=== PATIENT | male | born 1995 | race Caucasian/White ===

== ENCOUNTER 2025-04-05 11:24 | Emergency (ER) | payer OTHER, SELFPAY ==
--- NOTE | 2025-04-05 11:30 | DI.RAD_ITS ---
Exam(s) XR ANKLE RT COMPLETE XR FOOT RT COMPLETE EXAM: XR FOOT RT COMPLETE and XR ankle RT complete CLINICAL HISTORY: pain s/p fall. TECHNIQUE: 2D digital imaging was performed of the right ankle and foot. Six images were obtained. AP, oblique and lateral views were obtained. COMPARISON: There are no priors for comparison. FINDINGS: BONES: On the oblique view, there is a horizontal lucency projected over the lateral cuneiform. This may be artifact from overlying structures but a fracture may be considered. Please correlate with the patient's site of pain. No other findings to suggest a fracture are seen. No bony destructive lesion is seen. JOINTS: No dislocation present. The ankle joint is well maintained. SOFT TISSUE: There is soft tissue swelling lateral to the ankle. No radiopaque foreign bodies are seen. IMPRESSION: Questionable horizontal lucency overlying the lateral cuneiform on the oblique view of the foot. Fracture versus artifact. A CT scan of the midfoot may be obtained if clinically appropriate. DATA REPOSITORY: RADIATION DOSE DELIVERED:
[2025-04-05 11:31] VITALS: BP 132/80; PULSE 64; RESP 16; TEMP 36.3; O2SAT 96
--- NOTE | 2025-04-05 11:50 | ED.GENADUL_ITS ---
Discharge Plan Disposition Patient Disposition: Home Condition: Stable Discharge Details Clinical Impression: Right ankle injury, Right ankle sprain, Injury of foot, right Primary Care Provider: [facility] Provider: Mac Britton Home Meds and New Rx's Prescriptions: No Action No Known Home Meds Discharge Instructions Instructions: Ankle Sprain ED Additional Instructions: You can take 1000 mg of acetaminophen and 600 mg of ibuprofen every 6 hours as needed. If not improving within a week follow-up with express care. If you feel significant more ill or have severe worsening pain return to emergency department for reevaluation. HPI General Mode of arrival: ambulatory . Date/Time Provider Initiated Documentation: 04/05/25 11:34 . Limitations to Documentation: no limitations . Information obtained by: patient . History of Present Illness 29 year old M presents to the emergency department with the chief complaint of right ankle pain s/p twisting it, described as moderate, Quality is described as aching, and is localized to the right and lower extremity. Patient reports no radiation. Patient started experiencing this day(s) (1) and it has been constant. Rest improves symptom(s), Movement worsens symptoms . Patient notes no other symptoms.. Patient did receive the following treatments prior to arrival, none Related Data Home Medications ?Medication ?Instructions ?Recorded ?Confirmed Unknown [No Known Home Meds] 04/05/25 0 04/05/25 Allergies Allergy/AdvReac Type Severity Reaction Status Date / Time No Known Allergies Allergy Unverified 04/05/25 11:33 General Stated Complaint: Orthopedic HECTOR: 4 Review of Systems All systems reviewed & are unremarkable except as noted in HPI and below Constitutional Constitutional: Denies chills, Denies fever(s) and Denies weakness Cardiovascular Cardiovascular: Denies chest pain and Denies dyspnea Respiratory Respiratory: Denies dyspnea Neurologic Neurologic: Denies weakness Exam Const General: no acute distress Orientation: alert HENMT Head: normal to inspection Ears: external ears normal General nose exam: external nose normal Mouth: moist mucous membranes Eyes General: appearance normal, both eyes and all related structures Neck Neck: normal visual inspection Resp Effort & Inspection: normal respiratory effort and able to speak in complete sentences Cardio Rate: regular rate Skin General skin exam: no rashes or lesions noted Neuro General: patient alert and patient oriented x3 Extrem General: full ROM and capillary refill normal Psych Mental Status: mental status grossly normal Course Vital Signs Vital signs: Vital Signs Temperature 36.3 C L 04/05/25 11:31 Pulse 64 04/05/25 11:31 Respiratory Rate 16 04/05/25 11:31 Blood Pressure 132/80 04/05/25 11:31 Pulse Oximetry 96 04/05/25 11:31 Temperature 36.3 C L 04/05/25 11:31 Temperature Source Oral 04/05/25 11:31 Pulse 64 04/05/25 11:31 Respiratory Rate 16 04/05/25 11:31 Blood Pressure 132/80 04/05/25 11:31 Blood Pressure Position Sitting 04/05/25 11:31 Pulse Oximetry 96 04/05/25 11:31 Oxygen Delivery Method Room Air 04/05/25 11:31 Oxygen Flow Rate 0 04/05/25 11:31 Pain Level 3 04/05/25 11:41 Medical Decision Making 29-year-old male who denies any chronic medical problems comes in with right ankle pain. He says he was playing soccer with his kids yesterday and stepped in a hole and inverted his right ankle. He denies that or sustain other injuries. He has pain over the right lateral malleolus and right midfoot. He has some swelling over the right lateral malleolus. He has no tenderness in the posterior ankle, has full range of motion of the ankle. Intact sensation and pulses in the foot. There is no swelling of the foot. Has some tenderness over the lateral midfoot. No tenderness elsewhere in the leg. I suspect sprain versus fracture will obtain x-rays to further evaluate. X-ray my read shows no acute findings. Radiology questioned artifact vs lateral cuneiform nondisplaced fracture. I palpated this area and he has no tendernss at all in this area. I offered to do a CT but he declined which I feel is ruslan sonable. Will treat as a sprain and he will follow-up with express care if not improving, return precautions given Differential Diagnosis Differential Diagnosis: Sprain, fracture PFSH All Active Problems (Updated 04/05/25 @ 12:55 by Mac Britton MD) Injury of foot, right (Acute) Right ankle sprain (Acute) Right ankle injury (Acute) Family History Mother Malignant melanoma Social History Smoking/Tobacco Use Status: Never Smoking risk assessment performed?: Yes Alcohol Intake: current Alcohol Intake frequency: a few times a week Drug use: Never Substance use type: does not use Do you feel safe at home: Yes Do you feel safe in your relationship?: Yes
[2025-04-05] MEDS: Ibuprofen 600 MG TAB PO (11:56)
--- NOTE | 2025-04-06 14:14 | NUR.NOTE ---
Access chart to print the demographic sheet to go with [facility] billing requisitions and discharge diagnosis. Nursing Note:
== END 2025-04-05 13:12 | disposition home or self-care (01) ==
PROVIDERS: Emergency Provider Emergency Medicine
DX: S93.401A Sprain of unspecified ligament of right ankle, initial encounter (principal); Y93.66 Activity, soccer; X58.XXXA Exposure to other specified factors, initial encounter; M79.671 Pain in right foot
CPT/HCPCS: 99213; 99284; 29515; 73610; 73630; 99283